=== PATIENT | male | born 1955 | race African-American/Black ===

== ENCOUNTER 2017-10-04 10:02 | Emergency (ER) | payer OTHER | END 2017-10-04 12:35 | disposition home or self-care (01) | LOC: E/R 10:02 → FTE 12:35 | DX: S69.91XA Unspecified injury of right wrist, hand and finger(s), initial encounter (principal); I10 Essential (primary) hypertension; W19.XXXA Unspecified fall, initial encounter; Y92.310 Basketball court as the place of occurrence of the external cause | CPT/HCPCS: 29125; 73130-RT; 99283-25 ==

== ENCOUNTER 2018-01-10 01:31 | Emergency (ER) | payer SELFPAY, OTHER | END 2018-01-10 03:20 | disposition left against medical advice (07) | LOC: FTE 01:31 | DX: Z53.21 Procedure and treatment not carried out due to patient leaving prior to being seen by health care provider (principal) ==